=== PATIENT | female | born 1975 ===

== ENCOUNTER 2020-12-24 22:20 | Emergency (ER) | payer SELFPAY ==
[~2020-12-24 22:20] MED LIST: LORazepam 2 MG/ML Syringe ONE; Naloxone 2 MG/2 ML Syringe ONE
[2020-12-24] MEDS ORDERED: LORazepam 2 MG/ML Syringe IVPUSH PRN (22:21)
[2020-12-24] MEDS ORDERED: Naloxone 2 MG/2 ML Syringe IVPUSH ONE (22:23)
[2020-12-24] MEDS ORDERED: Sodium Chloride 0.9% 1,000 ML ONE (22:46)
[2020-12-24 22:57] LABS: CHLORIDE,CL 102 mEq/L (98-106); SODIUM,NA 141 mEq/L (136-145)
[2020-12-24 22:58] LABS: PTT,PARTIAL THROMBOPLSTIN TIME 22.6 SEC (23.2-32.3)
[2020-12-24] MEDS ORDERED: Sodium Chloride 0.9% 1,000 ML IV SCH (23:08)
--- NOTE | 2020-12-24 23:15 | EDM.PDOC ---
ED HPI GENERAL MEDICAL PROBLEM - General Chief Complaint: General Stated Complaint: unresponsive Time Seen by Provider: 12/24/20 22:18 Source of Information: Reports: Patient History Limitations: Reports: No Limitations - History of Present Illness INITIAL COMMENTS - FREE TEXT/NARRATIVE: This patient is a 45 year old female that arrives via EMS to the ER. EMS reports they got called for unresponsive. Police report they responded to the residence for landlord issue, the patient would not answer the door. Took several minutes, they gained entry to the building to find her laying on the floor unresponsive. The friend knows no history of the patient. He reports she does not do drugs that he knows of. EMS in route gave 2mg Narcan without response. Patient has a nasal airway left nare. When patient arrived, oxygen saturation is 93% on RA. Breathing 10/min. NRB 15L applied, patient now at 100%. Accuchec is 158. 2MG Narcan IV given, 2 IVs access. No response with Narcan. Patient eyes Nystagmus with rapid back and forth eye movements. Pupils are 3mm and sluggish. Ativan 1mg given for possible seizures. No response. Patient has bright green vomitus to cheek. I do not see evidence of trauma injury, I do not see track daniel to arms. [facility] consulted. At this time, will not intubate due to patient maintaining airway at this time. Will await flight and intubate if patient GCS remains low. Last known well time by boyfriend was 4:30pm Onset: Unknown/Unsure Duration: Other (Unknown) Severity: Severe Associated Symptoms: Reports: Other (Unresponsive) - Related Data Allergies Allergy/AdvReac Type Severity Reaction Status Date / Time Unable to Assess Allergy Unverified 12/24/20 23:17 Home Meds: Home Meds . [Unable to Verify Home Med List] 12/24/20 [History] ED ROS GENERAL - Review of Systems Review Of Systems: Unable To Obtain Reason Not Obtained: Unresponsive ED EXAM, GENERAL - Physical Exam Exam: See Below Exam Limited By: Altered Mental Status (Unresponsive) General Appearance: Moderate Distress Eye Exam: Bilateral Eye: Abnormal EOM, Nystagmus Ears: Normal External Exam, Normal Canal, Hearing Grossly Normal, Normal TMs Ear Exam: Bilateral Ear: Auricle Normal, Canal Normal, TM normal Nose: Other (nasal trumpet left nare) Throat/Mouth: Other (Poor dental decay throughout. Bright green substance to the lips, left cheek. Scant Bright red blood oropharynx) Head: Atraumatic, Normocephalic Neck: Normal Inspection Respiratory/Chest: No Respiratory Distress (Rate of 10/min, 93% RA, 100% on NRB. ), Normal Breath Sounds, No Accessory Muscle Use Cardiovascular: Normal Peripheral Pulses, Regular Rate, Rhythm, No Edema Peripheral Pulses: 2+: Radial (L), Radial (R), Posterior Tibial (L), Posterior Tibial (R), Dorsalis Pedis (L), Dorsalis Pedis (R) GI/Abdominal: Soft, Pelvis Stable (Female) Exam: Deferred Rectal (Female) Exam: Deferred Back Exam: Normal Inspection Extremities: Normal Inspection (no track daniel seen) Neurological: Unresponsive, Other (GCS 7: Eyes to pain 2, Voice Nonverbal 1, Motor withdraws to pain 4. ) Skin Exam: Erythema (bilateral cheeks) Course - Vital Signs Last Recorded V/S: Last Vital Signs Temp 96 F L 12/24/20 23:14 Pulse 94 12/24/20 23:14 Resp 20 12/24/20 23:14 BP 154/125 H 12/24/20 23:14 Pulse Ox 100 12/24/20 23:14 - Orders/Labs/Meds Orders: Active Orders 24 hr Category Date Time Status Cervical Spine wo Cont [CT] Stat Exams 12/24/20 Taken Head wo Cont [CT] Routine Exams 12/24/20 Taken LORazepam [Ativan] Med 12/24/20 22:21 Active 1 mg IVPUSH ASDIRECTED PRN Sodium Chloride 0.9% [Normal Saline] 1,000 ml Med 12/24/20 23:08 Active IV ASDIRECTED Medication Orders Sodium Chloride (Normal Saline) 1,000 mls @ 999 mls/hr IV ASDIRECTED ECHO Last Admin: 12/24/20 23:08 Dose: 999 mls/hr Documented by: SEAN Lorazepam (Lorazepam 2 Mg/Ml Syringe) 1 mg IVPUSH ASDIRECTED PRN PRN Reason: Anxiety Last Admin: 12/24/20 22:29 Dose: 1 mg Documented by: SEAN Labs: Laboratory Tests 05/30/21 05/30/21 05/30/21 Range/Units 22:28 22:39 22:39 WBC 11.6 H (5.0-10.0) 10^3/uL RBC 4.90 (4.00-5.50) 10^6/uL Hgb 15.0 (12.0-16.0) g/dL Hct 44.5 (37.0-47.0) % MCV 90.8 (82.0-94.0) fL MCH 30.6 (27.0-32.0) pg MCHC 33.7 (33.0-38.0) g/dL RDW Coeff of Breezy 13.5 (11.0-15.0) % Plt Count 268 (150-400) 10^3/uL Neut % (Auto) 85.6 H (35-85) % Lymph % (Auto) 10.6 (10-55) % [place] % (Auto) 3.7 (0-16) % Eos % (Auto) 0 (0-5) % Baso % (Auto) 0.1 (0-3) % Neut # (Auto) 9.90 H (1.80-7.00) 10^3/uL Lymph # (Auto) 1.23 (1.00-4.80) 10^3/uL [place] # (Auto) 0.43 (0.00-0.80) 10^3/uL Eos # (Auto) 0.00 (0.00-0.45) 10^3/uL Baso # (Auto) 0.01 10^3/uL PT (9.7-12.3) SEC INR (0.92-1.18) APTT (23.2-32.3) SEC Sodium 141 (136-145) mEq/L Potassium 2.8 L* (3.5-5.0) mEq/L Chloride 102 (98-106) mEq/L Carbon Dioxide 26 (21-32) mmol/L BUN 10 (7-18) mg/dL Creatinine 0.9 (0.6-1.0) mg/dL Est Cr Clr Drug Dosing TNP Estimated GFR (MDRD) > 60 (>=60) mL/min Glucose 139 H (75-99) mg/dL POC Glucose 158 H (75-105) mg/dL Calcium 8.4 (8.4-10.1) mg/dL Total Bilirubin 0.4 (0.0-1.0) mg/dL AST 16 (15-37) U/L ALT 15 (12-78) U/L Alkaline Phosphatase 80 (46-116) U/L Lactate Dehydrogenase 125 (100-190) U/L Creatine Kinase 160 (21-215) U/L Troponin I 0.024 (0.00-0.06) ng/mL Total Protein 7.6 (6.4-8.2) g/dL Albumin 4.0 (3.4-5.0) g/dL Amylase 37 (25-115) U/L Lipase 44 L (73-393) U/L Urine Color (YELLOW) Urine Appearance (CLEAR) Urine pH (4.5-8.0) Ur Specific [place] (1.003-1.020) Urine Protein (NEGATIVE) mg/dL Urine Glucose (UA) (NEGATIVE) mg/dL Urine Ketones (NEGATIVE) mg/dL Urine Occult Blood (NEGATIVE) Urine Nitrite (NEGATIVE) Urine Bilirubin (NEGATIVE) Urine Urobilinogen (0.2-1.0) EU/dL Ur Leukocyte Esterase (NEGATIVE) Urine Opiates Screen (NEGATIVE) Ur Oxycodone Screen (NEGATIVE) Urine Methadone Screen (NEGATIVE) Ur Barbiturates Screen (NEGATIVE) U Tricyclic Antidepress (NEGATIVE) Ur Phencyclidine Scrn (NEGATIVE) Ur Amphetamine Screen (NEGATIVE) U Methamphetamines Scrn (NEGATIVE) Urine MDMA Screen (NEGATIVE) U Benzodiazepines Scrn (NEGATIVE) Urine Cocaine Screen (NEGATIVE) U Marijuana (THC) Screen (NEGATIVE) 12/24/20 12/24/20 12/24/20 Range/Units 22:39 22:45 22:45 WBC (5.0-10.0) 10^3/uL RBC (4.00-5.50) 10^6/uL Hgb (12.0-16.0) g/dL Hct (37.0-47.0) % MCV (82.0-94.0) fL MCH (27.0-32.0) pg MCHC (33.0-38.0) g/dL RDW Coeff of [place]ree[place] (11.0-15.0) % Plt Count (150-400) 10^3/uL Neut % (Auto) (35-85) % Lymph % (Auto) (10-55) % [place] % (Auto) (0-16) % Eos % (Auto) (0-5) % Baso % (Auto) (0-3) % Neut # (Auto) (1.80-7.00) 10^3/uL Lymph # (Auto) (1.00-4.80) 10^3/uL [place] # (Auto) (0.00-0.80) 10^3/uL Eos # (Auto) (0.00-0.45) 10^3/uL Baso # (Auto) 10^3/uL PT 11.6 (9.7-12.3) SEC INR 1.06 (0.92-1.18) APTT 22.6 L (23.2-32.3) SEC Sodium (136-145) mEq/L Potassium (3.5-5.0) mEq/L Chloride (98-106) mEq/L Carbon Dioxide (21-32) mmol/L BUN (7-18) mg/dL Creatinine (0.6-1.0) mg/dL Est Cr Clr Drug Dosing Estimated GFR (MDRD) (>=60) mL/min Glucose (75-99) mg/dL POC Glucose (75-105) mg/dL Calcium (8.4-10.1) mg/dL Total Bilirubin (0.0-1.0) mg/dL AST (15-37) U/L ALT (12-78) U/L Alkaline Phosphatase (46-116) U/L Lactate Dehydrogenase (100-190) U/L Creatine Kinase (21-215) U/L Troponin I (0.00-0.06) ng/mL Total Protein (6.4-8.2) g/dL Albumin (3.4-5.0) g/dL Amylase (25-115) U/L Lipase (73-393) U/L Urine Color Light yellow (YELLOW) Urine Appearance Clear (CLEAR) Urine pH 5.5 (4.5-8.0) Ur Specific [place] >= 1.030 H (1.003-1.020) Urine Protein Negative (NEGATIVE) mg/dL Urine Glucose (UA) Negative (NEGATIVE) mg/dL Urine Ketones 40 H (NEGATIVE) mg/dL Urine Occult Blood Negative (NEGATIVE) Urine Nitrite Negative (NEGATIVE) Urine Bilirubin Negative (NEGATIVE) Urine Urobilinogen 0.2 (0.2-1.0) EU/dL Ur Leukocyte Esterase Negative (NEGATIVE) Urine Opiates Screen Negative (NEGATIVE) Ur Oxycodone Screen Negative (NEGATIVE) Urine Methadone Screen Positive H (NEGATIVE) Ur Barbiturates Screen Negative (NEGATIVE) U Tricyclic Antidepress Positive H (NEGATIVE) Ur Phencyclidine Scrn Negative (NEGATIVE) Ur Amphetamine Screen Positive H (NEGATIVE) U Methamphetamines Scrn Positive H (NEGATIVE) Urine MDMA Screen Positive H (NEGATIVE) U Benzodiazepines Scrn Negative (NEGATIVE) Urine Cocaine Screen Negative (NEGATIVE) U Marijuana (THC) Screen [place] (NEGATIVE) Meds: Medications Generic Name Dose Route Start Last Admin Trade Name Freq PRN Reason Stop Dose Admin Sodium Chloride 1,000 mls @ 999 mls/hr 12/24/20 23:08 12/24/20 23:08 Normal Saline IV 999 mls/hr ASDIRECTED ECHO Administration Lorazepam 1 mg 12/24/20 22:21 12/24/20 22:29 Lorazepam 2 Mg/Ml Syringe IVPUSH 1 mg ASDIRECTED PRN Administration Anxiety Discontinued Medications Generic Name Dose Route Start Last Admin Trade Name Freq PRN Reason Stop Dose Admin Sodium Chloride Confirm 12/24/20 22:46 Normal Saline Administered 12/24/20 22:47 Dose 1,000 mls @ as directed .ROUTE .STK-MED ONE Lorazepam Confirm 12/24/20 22:03 Lorazepam 2 Mg/Ml Syringe Administered 12/24/20 22:04 Dose 2 mg .ROUTE .STK-MED ONE Naloxone HCl Confirm 12/24/20 21:58 Naloxone 2 Mg/2 Ml Syringe Administered 12/24/20 21:59 Dose 2 mg .ROUTE .STK-MED ONE Naloxone HCl 2 mg 12/24/20 22:23 12/24/20 22:23 Naloxone 2 Mg/2 Ml Syringe IVPUSH 12/24/20 22:24 2 mg ONETIME ONE Administration - Radiology Interpretation Free Text/Narrative:: Head/Cervical CT: No acute findings. Nasal tube, poor dental decay. CT Results Date: 12/24/20 CT Results Time: 23:28 - Re-Assessments/Exams Free Text/Narrative Re-Assessment/Exam: 12/24/[address] Vianey LR MD at [facility] who has accepted the patient. 12/24/20 23:[address], Patient began vomiting bright red blood, mixed with a bright green. Patient rolled to side, C-Collar placed. 12/24/20 23:32 C-Collar removed. 12/24/20 23:34 Flight has arrived, patient report given by RN. They are preparing to intubate. They have now assumed care of this patient. Departure - Departure Time of Disposition: 23:10 Disposition: DC/Tfer to [facility] Condition: Serious Clinical Impression: Unresponsive, Drug abuse - Discharge Information *PRESCRIPTION DRUG MONITORING PROGRAM REVIEWED*: No *COPY OF PRESCRIPTION DRUG MONITORING REPORT IN PATIENT FABY: No Forms: ED Department Discharge Sepsis Event Note (ED) - Focused Exam Vital Signs: Vital Signs Temp Pulse Resp BP Pulse Ox 12/24/20 23:14 96 F L 94 20 154/125 H 100 - My Orders Last 24 Hours: My Active Orders 12/24/20 Cervical Spine wo Cont [CT] Stat Head wo Cont [CT] Routine 12/24/20 22:21 LORazepam [Ativan] 1 mg IVPUSH ASDIRECTED PRN 12/24/20 23:08 Sodium Chloride 0.9% [Normal Saline] 1,000 ml IV ASDIRECTED - Assessment/Plan Last 24 Hours: My Active Orders 12/24/20 Cervical Spine wo Cont [CT] Stat Head wo Cont [CT] Routine 12/24/20 22:21 LORazepam [Ativan] 1 mg IVPUSH ASDIRECTED PRN 12/24/20 23:08 Sodium Chloride 0.9% [Normal Saline] 1,000 ml IV ASDIRECTED Plan: PLEASE SEE RN NOTE FOR PFSH. Patient is being transferred to [facility] via helicopter. Patient is unresponsive, so risk vs benefits were not explained to the patient. Patient does not have family or contact info here. Benefits far exceed risk of transfer, making my medical decision making to transfer the patient. The risk of transfer is crash, , cardiac arrest, respiratory arrest. The risk of staying in [place] is no ventilator, , worsening of condition. The benefits of staying in [place] none. The benefits of transfer are higher level of care, ICU, ventilator.
== END 2020-12-25 00:05 ==
LOC: CC.ED 22:20
DX: R40.4 Transient alteration of awareness (principal); F19.10 Other psychoactive substance abuse, uncomplicated
CPT/HCPCS: 36415; 70450; 72125; 80053; 80305; 81003; 82150; 82550; 82947; 83615; 83690; 84484; 85025; 85610; 85730; 93005; 96374; 96375; 99285; J2060; J2310; J7030